=== PATIENT | female | born 1980 | race Hispanic/Latino ===

== ENCOUNTER 2018-06-27 09:00 | Emergency (ER) | payer BC ==
--- OUTSIDE RECORDS SUMMARY | 2018-06-27 09:03 | XMS REPORT | Clinical Summary ---
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 Encounters Date Type Specialty Care Team Description 07/02/2017 Orders Only General Surgery Jerry Reilly RN Morbid obesity due to excess calories (Primary Dx); Intestinal malabsorption, unspecified type; History of bariatric surgery after 06/26/2017 Family History Medical History Relation Name Comments Diabetes Brother Hypertension Brother Uterine cancer Mother Relation Name Status Comments Brother Mother Social History Tobacco Use Types Packs/Day Years Used Date Never Smoker Alcohol Use Drinks/Week oz/Week Comments No Sex Assigned at Date Recorded Not on file Job Start Date Occupation Industry Not on file Not on file Not on file Travel History Travel Start Travel End No recent travel history available. Last Filed Vital Signs Not on file Plan of Treatment Health Maintenance Due Date Last Done Comments CERVICAL CANCER SCREENING 2000 INFLUENZA VACCINE 01/16/2018 Results Not on fileafter 06/26/2017 Advance Directives Patient has advance care planning documents on file. For more information, please contact:[address] [address]
--- OUTSIDE RECORDS SUMMARY | 2018-06-27 09:03 | XMS REPORT ---
:1980 [facility] Address [address] [place] [address] Care Team Providers Name Role Phone Unavailable Unavailable Unavailable Payers Payer Name Policy Type Policy Number Effective Date Expiration Date Problems This patient has no known problems. Allergies, Adverse Reactions, Alerts Allergy Allergy Status Severity Reaction(s) Onset Inactive Treating Comments Name Type Date Date Clinician No Known DA Active U 2014-09 Allergies -18 00:00:0 0 Medications This patient has no known medications.
--- OUTSIDE RECORDS SUMMARY | 2018-06-27 09:03 | XMS REPORT ---
:1980 Author Organization [employer] Care Team Providers Name Role Phone Jenifer Mondragon Provider Role Unavailable Allergies No Known Allergies Problems Problem Type Condition Code Onset Dates Condition Status Problem Burping R14.2 Active Problem Total bilirubin, elevated R17 Active Problem Gastroesophageal reflux disease, K21.9 Active esophagitis presence not specified Problem Edema R60.9 Active Problem Constipation K59.00 Active Problem Shortness of breath R06.02 Active Problem Pain in unspecified foot M79.673 Active Problem Numbness R20.0 Active Problem Headache R51 Active Problem Low back pain M54.5 Active Problem Epigastric pain R10.13 Active Problem Chronic constipation K59.09 Active Problem Depression, unspecified depression F32.9 Active type Problem History of gastric bypass Z98.84 Active Problem History of hiatal hernia Z87.19 Active Medications No Known Medications Results No Known Results Summary Purpose [employer] Submission
--- OUTSIDE RECORDS SUMMARY | 2018-06-27 09:03 | XMS REPORT ---
:1980 Author Organization [employer] Care Team Providers Name Role Phone Jenifer Mondragon Provider Role Unavailable Allergies, Adverse Reactions, Alerts Substance Reaction Event Type N.K.D.A. Info Not Available Non Drug Allergy Problems Problem Type Condition Code Onset Dates [...] Active Problem Low back pain M54.5 Active Assessment Influenza vaccination administered Z23 Active during current admission Assessment School physical exam Z02.0 Active Problem Epigastric pain R10.13 Active Problem Chronic constipation K59.09 Active Problem Depression, unspecified depression F32.9 Active type Problem History of gastric bypass Z98.84 Active Problem History of hiatal hernia Z87.19 Active Medications Medication Code Code Instructions Start End Status Dosage System Date Date Amitiza [facility] 16969273868 24 MCG Orally Active 1 capsule Twice a day with food Meloxicam [facility] 98821447852 7.5 MG Orally Active 1 tablet Once a day Cyclobenzaprine [facility] 58164920416 5 MG Orally Active 1 tablet HCl Once daily as needed Lexapro [facility] 64200117925 10 MG Orally Active 1 tablet Once a day Lexapro ND 06161105649 10 MG Orally October 17, Active 1 tablet Once a day 2018 in am Protonix ND 20140110623 40 MG Orally October 17, Active 1 tablet Once a day 2017 Results No Known Results Immunizations Vaccine Administration Date Flucelvax - multidose vial Jun 13, 2018 Summary Purpose [employer]ClinicalWorks Submission
--- OUTSIDE RECORDS SUMMARY | 2018-06-27 09:03 | XMS REPORT ---
[...] Medications Results No Known Results Summary Purpose [employer]Works Submission
[2018-06-27 10:20] LABS: Absolute Lymphocytes (CBC) 1.4 K/uL (0.7-4.9); Absolute Monocytes 0.5 K/uL (0.1-1.3); Absolute Neutrophil 3.3 K/uL (1.8-8.0); Basophils % 0.8 % (0-1.3); Eosinophils % 1.2 % (0-4.4); Hematocrit 21.5 % (36.0-45.0); Lymphocytes % 26.7 % (15.3-44.8); MPV 7.7 fL (7.6-11.3); Monocytes % 9.1 % (3.3-12.3)
[2018-06-27 10:38] LABS: BUN Blood Urea Nitrogen 11 mg/dL (7-18); Bicarbonate 28 mmol/L (21-32); Ferritin 1.2 ng/mL (8-388); Glucose Level 82 mg/dL (74-106); Potassium 3.9 mmol/L (3.5-5.1); Sodium Level 142 mmol/L (136-145); Transferrin 350 mg/dL (200-360)
[2018-06-27 12:47] LABS: Anisocytosis 2+; Blood Morphology Comment NOTED (NOT SEEN); Hypochromasia 2+; Platelet Estimate ADEQ; Urine White Blood Cell Casts OK
[2018-06-27 12:48] LABS: Elliptocytes 1+
[2018-06-27] MEDS ORDERED: NA CHLORIDE 0.9% 250 ML ONE (13:12)
--- NOTE | 2018-06-27 15:23 | ER ---
Nurse's Notes [facility] Name: Argelia Hood Age: 38 yrs Sex: Female : 1980 Arrival Date: 06/27/2018 Time: 09:06 Bed 15 Private MD: Diagnosis: Iron deficiency anemia secondary to blood loss (chronic);Iron deficiency anemia Presentation: 06/27 09:32 Presenting complaint: Patient states: was sent by Dr. Mondragon for low Hgb, thinks iw maybe it was a 5.8, had heavy menstrual period 10 days ago, denies SOB, dizziness, Hbg was drawn for routine screening. 09:34 Transition of care: patient was not received from another setting of care. Onset of iw symptoms was June 27, 2018. Risk Assessment: Do you want to hurt yourself or someone else? Patient reports no desire to harm self or others. Initial Sepsis Screen: Does the patient meet any 2 criteria? No. Patient's initial sepsis screen is negative. Does the patient have a suspected source of infection? No. Patient's initial sepsis screen is negative. Care prior to arrival: None. 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 - Social history:: Smoking status: Patient/guardian denies using tobacco. - Ebola Screening: : Patient negative for fever greater than or equal to 101.5 degrees Fahrenheit, and additional compatible Ebola Virus Disease symptoms Patient denies exposure to infectious person Patient denies travel to an Ebola-affected area in the 21 days before illness onset No symptoms or risks identified at this time. Screenin:37 Abuse screen: Denies threats or abuse. Denies injuries from another. Nutritional iw screening: No deficits noted. Tuberculosis screening: No symptoms or risk factors identified. Fall Risk None identified. Assessment: 10:05 General: Appears in no apparent distress. comfortable, Behavior is calm, cooperative, aj appropriate for age. Pain: Denies pain. Neuro: Level of Consciousness is awake, alert, obeys commands, Oriented to person, place, time, situation, Appropriate for age. Respiratory: Airway is patent Respiratory effort is even, unlabored, Respiratory pattern is regular, symmetrical. Derm: Skin Skin is normal, pale. 15:29 Reassessment: Patient appears in no apparent distress at this time. No changes from aj previously documented assessment. Patient and/or family updated on plan of care and expected duration. Pain level reassessed. Patient is alert, oriented x 3, equal unlabored respirations, skin warm/dry/pink. Completed transfusion of 1 unit PRBC, approx 320 ml. Reports feeling better. Patient states feeling better. Patient states symptoms have improved. Vital Signs: 09:35 BP 101 / 61; Pulse 70; Resp 16; Temp 98.2; Pulse Ox 100% on R/A; Weight 68.95 kg; iw Height 5 ft. 2 in. (157.48 cm); Pain 0/10; 10:22 BP 95 / 54; Pulse 68; Resp 18; Pulse Ox 100% on R/A; aj 10:42 BP 94 / 62; Pulse 62; Resp 17; Pulse Ox 100% on R/A; mh5 11:44 BP 99 / 59; Pulse 77; Resp 16; Temp 98.6(O); Pulse Ox 100% on R/A; mh5 13:10 BP 97 / 60; Pulse 72; Resp 20; Temp 97.9; Pulse Ox 100% on R/A; aj 14:56 BP 99 / 55; Pulse 64; Resp 19; Pulse Ox 100% on R/A; aj 09:35 Body Mass Index 27.80 (68.95 kg, 157.48 cm) ED Course: 09:06 Patient arrived in ED. mr 09:21 Dmitry Tyler PA is PHCP. jr8 09:21 Parmjit Tang MD is Attending Physician. jr8 09:34 Triage completed. iw 09:35 Arm band placed on. iw 09:59 Elodia Bear, JILL is Primary Nurse. aj 10:05 Patient has correct armband on for positive identification. Bed in low position. Call aj light in reach. Side rails up X 1. Adult w/ patient. equipment monitor phototypesetting on. Pulse ox on. NIBP on. 10:12 Initial lab(s) drawn, by me, sent to lab. T\T\S collected, blood band applied to patient. 5 Inserted saline lock: 22 gauge in right antecubital area, using aseptic technique. Blood collected. 10:13 TS Sent. 5 10:13 TIBC Sent. mh5 10:13 Iron Level Sent. mh5 10:13 Basic Metabolic Panel Sent. 5 10:13 CBC with Diff Sent. 5 10:14 Warm blanket given. 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 aj 15:29 IV discontinued, intact, bleeding controlled, No redness/swelling at site. Pressure aj dressing applied. Administered Medications: No medications were administered Outcome: 15:23 Discharge ordered by MD. mariah 15: Discharged to home ambulatory, with family. aj 15: Condition: good 15:29 Discharge instructions given to patient, family, Instructed on discharge instructions, follow up and referral plans. medication usage, Demonstrated understanding of instructions, follow-up care, medications, Prescriptions given X 1. 15:32 Patient left the ED. bee Signatures: Elodia Bear, RN Alisson Tan Irene, RN Dmitry Lema, DIALLO LANDRUM jrTatiana Gayle [facility] Corrections: (The following items were deleted from the chart) 09:34 09:32 Presenting complaint: Patient states: was sent by Dr. Mondragon for low Hgb, iw thinks maybe it was a 5.8, had heavy menstrual period 10 days ago, denies SOB, dizziness iw
--- NOTE | 2018-06-27 15:24 | EDPHYS ---
Physician Documentation [facility] Name: Argelia Hood Age: 38 yrs Sex: Female : 1980 Arrival Date: 06/27/2018 Time: 09:06 Bed 15 Private MD: ED Physician Parmjit Tang HPI: 06/27 11:04 This 38 yrs old Female presents to ER via Ambulatory with complaints of jr8 Abnormal Lab Results. 11:04 Patient with history of heavy menstrual cycles. Baseline iron deficient anemia per her. jr8 Stated that list last cycle she felt dizzy and was having sweating episodes. 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 Had blood work completed at that time. Was called telling her that she was anemic and needed transfusion. Came to ED at that time. Patient denies anymore bleeding . Severity of symptoms: At their worst the symptoms were mild in the emergency department the symptoms have improved. The patient has not experienced similar symptoms in the past. The patient has not recently seen a physician. 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 - Social history:: Smoking status: Patient/guardian denies using tobacco. - Ebola Screening: : Patient negative for fever greater than or equal to 101.5 degrees Fahrenheit, and additional compatible Ebola Virus Disease symptoms Patient denies exposure to infectious person Patient denies travel to an Ebola-affected area in the 21 days before illness onset No symptoms or risks identified at this time. ROS: 11:04 Eyes: Negative for injury, pain, redness, and discharge, ENT: Negative for injury, jr8 pain, and discharge, Neck: Negative for injury, pain, and swelling, Cardiovascular: Negative for chest pain, palpitations, and edema, Respiratory: Negative for shortness of breath, cough, wheezing, and pleuritic chest pain, Abdomen/GI: Negative for abdominal pain, nausea, vomiting, diarrhea, and constipation, Back: Negative for injury and pain, MS/Extremity: Negative for injury and deformity, Neuro: Negative for headache, weakness, numbness, tingling, and seizure. 11:04 : Positive for vaginal bleeding, menstrual abnormality. 11:04 Skin: Positive for pallor. Exam: 11:04 Eyes: Pupils equal round and reactive to light, extra-ocular motions intact. Lids and jr8 lashes normal. Conjunctiva and sclera are non-icteric and not injected. Cornea within normal limits. Periorbital areas with no swelling, redness, or edema. ENT: Nares patent. No nasal discharge, no septal abnormalities noted. Tympanic membranes are normal and external auditory canals are clear. Oropharynx with no redness, swelling, or masses, exudates, or evidence of obstruction, uvula midline. Mucous membranes moist. Neck: Trachea midline, no thyromegaly or masses palpated, and no cervical lymphadenopathy. Supple, full range of motion without nuchal rigidity, or vertebral point tenderness. No Meningismus. Cardiovascular: Regular rate and rhythm with a normal S1 and S2. No gallops, murmurs, or rubs. Normal PMI, no JVD. No pulse deficits. Respiratory: Lungs have equal breath sounds bilaterally, clear to auscultation and percussion. No rales, rhonchi or wheezes noted. No increased work of breathing, no retractions or nasal flaring. Abdomen/GI: Soft, non-tender, with normal bowel sounds. No distension or tympany. No guarding or rebound. No evidence of tenderness throughout. Back: No spinal tenderness. No costovertebral tenderness. Full range of motion. MS/ Extremity: Pulses equal, no cyanosis. Neurovascular intact. Full, normal range of motion. Neuro: Awake and alert, GCS 15, oriented to person, place, time, and situation. Cranial nerves II-XII grossly intact. Motor strength 5/5 in all extremities. Sensory grossly intact. Cerebellar exam normal. Normal gait. 11:04 Skin: Appearance: Color: pale, Temperature: normal temperature, Moisture: normal moisture, petechiae, not noted, ecchymosis, not noted. 11:15 Abdomen/GI: Rectal exam: rectal tone normal, Stool: brown, guaiac negative, jr8 hemorrhoid(s), are not appreciated, mass, is not appreciated, tenderness, is not appreciated, the exam is chaperoned by the nurse. Vital Signs: 09:35 BP 101 / 61; Pulse 70; Resp 16; Temp 98.2; Pulse Ox 100% on R/A; Weight 68.95 kg; iw Height 5 ft. 2 in. (157.48 cm); Pain 0/10; 10:22 BP 95 / 54; Pulse 68; Resp 18; Pulse Ox 100% on R/A; aj 10:42 BP 94 / 62; Pulse 62; Resp 17; Pulse Ox 100% on R/A; mh5 11:44 BP 99 / 59; Pulse 77; Resp 16; Temp 98.6(O); Pulse Ox 100% on R/A; mh5 13:10 BP 97 / 60; Pulse 72; Resp 20; Temp 97.9; Pulse Ox 100% on R/A; aj 14:56 BP 99 / 55; Pulse 64; Resp 19; Pulse Ox 100% on R/A; aj 09:35 Body Mass Index 27.80 (68.95 kg, 157.48 cm) iw MDM: 09:21 Patient medically screened. rust 15:21 Data reviewed: vital signs, nurses notes, lab test result(s), and as a result, I will jr8 discharge patient. Data interpreted: Pulse oximetry: on room air is 100 %. Interpretation: normal. Counseling: I had a detailed discussion with the patient and/or guardian regarding: the historical points, exam findings, and any diagnostic results supporting the discharge/admit diagnosis, lab results, the need for outpatient follow up, a family practitioner, an OB/Gyne specialist, to return to the emergency department if symptoms worsen or persist or if there are any questions or concerns that arise at home. Response to treatment: the patient's symptoms have markedly improved after treatment. ED course: asymptomatic post transfusion. 06/27 09:36 Order name: CBC with Diff; Complete Time: 12:52 06/27 09:36 Order name: Basic Metabolic Panel; Complete Time: 10:48 jr8 06/27 09:36 Order name: Iron Level; Complete Time: 10:48 06/27 09:36 Order name: TIBC; Complete Time: 10:48 06/27 09:36 Order name: TS jr8 06/27 09:36 Order name: IV; Complete Time: 10:13 jr8 06/27 10:28 Order name: CBC Smear Scan; Complete Time: 12:52 EDKS 06/27 11:04 Order name: Jolanta em1 06/27 11:41 Order name: ABO/RH no charge; Complete Time: 12:07 [facility] 06/27 12:34 Order name: ABO rpt [facility] 06/27 12:34 Order name: Packed RBCs (Additional Unit) EDKS Administered Medications: No medications were administered Disposition: 15:41 Co-signature as Attending Physician, Parmjit Tang MD I agree with the assessment and [facility] plan of care. Disposition: 06/27/18 15:23 Discharged to Home. Impression: Iron deficiency anemia secondary to blood loss (chronic), Iron deficiency anemia. - Condition is Stable. - Discharge Instructions: Iron Deficiency Anemia, Adult, Blood Transfusion, Adult, Iron-Rich Diet. - Prescriptions for Ferrous Sulfate 325 mg (65 mg Iron) Oral Tablet - take 1 tablet by ORAL route every 8 hours; 90 tablet. - Medication Reconciliation Form, Thank You Letter, Antibiotic Education, Prescription Opioid Use form. - Follow up: Private Physician; When: 2 - 3 days; Reason: Recheck today's complaints, Continuance of care, Re-evaluation by your physician. - Problem is new. - Symptoms have improved. Signatures: Dispatcher [employer] EDKS Elodia Bear RN RN aj Anderson, Corey, MD MD cha Williams, Irene, RN RN iw Roszak, Josh, PA PA jr8 Corrections: (The following items were deleted from the chart) 09:38 09:37 FERRITIN+C.LAB.BRZ ordered. [facility] 11:15 11:04 Eyes: Pupils equal round and reactive to light, extra-ocular motions intact. Lids jr8 and lashes normal. Conjunctiva and sclera are non-icteric and not injected. Cornea within normal limits. Periorbital areas with no swelling, redness, or edema. ENT: Nares patent. No nasal discharge, no septal abnormalities noted. Tympanic membranes are normal and external auditory canals are clear. Oropharynx with no redness, swelling, or masses, exudates, or evidence of obstruction, uvula midline. Mucous membranes moist. Neck: Trachea midline, no thyromegaly or masses palpated, and no cervical lymphadenopathy. Supple, full range of motion without nuchal rigidity, or vertebral point tenderness. No Meningismus. Cardiovascular: Regular rate and rhythm with a normal S1 and S2. No gallops, murmurs, or rubs. Normal PMI, no JVD. No pulse deficits. Respiratory: Lungs have equal breath sounds bilaterally, clear to auscultation and percussion. No rales, rhonchi or wheezes noted. No increased work of breathing, no retractions or nasal flaring. Abdomen/GI: Soft, non-tender, with normal bowel sounds. No distension or tympany. No guarding or rebound. No evidence of tenderness throughout. Back: No spinal tenderness. No costovertebral tenderness. Full range of motion. MS/ Extremity: Pulses equal, no cyanosis. Neurovascular intact. Full, normal range of motion. Neuro: Awake and alert, GCS 15, oriented to person, place, time, and situation. Cranial nerves II-XII grossly intact. Motor strength 5/5 in all extremities. Sensory grossly intact. Cerebellar exam normal. Normal gait. jr8 15:32 15:23 06/27/2018 15:23 Discharged to Home. Impression: Iron deficiency anemia secondary aj to blood loss (chronic); Iron deficiency anemia. Condition is Stable. Forms are Medication Reconciliation Form, Thank You Letter, Antibiotic Education, Prescription Opioid Use. Follow up: Private Physician; When: 2 - 3 days; Reason: Recheck today's complaints, Continuance of care, Re-evaluation by your physician. Problem is new. Symptoms have improved. jr8
== END 2018-06-27 15:32 | disposition home or self-care (01) ==
LOC: ER 09:00
PROC: 30233N1 Transfusion of Nonautologous Red Blood Cells into Peripheral Vein, Percutaneous Approach (ICD-10-PCS; principal; 2018-06-27)
DX: D50.0 Iron deficiency anemia secondary to blood loss (chronic) (principal)
CPT/HCPCS: 36415; 80048; 82272; 82728; 83540; 84466; 85025; 86850; 86900; 86901; 99284; P9016

== ENCOUNTER 2018-11-21 07:43 | Emergency (ER) | payer BC ==
--- OUTSIDE RECORDS SUMMARY | 2018-11-21 07:46 | XMS REPORT | Clinical Summary ---
:07/02/1979 Author Organization [facility] Address [address] [place] [address] Care Team Providers Name Role Phone Pcp, No Primary Care Provider Unavailable Allergies No Known Allergies Medications No known medications Active Problems Not on file Social History Tobacco Use Types Packs/Day Years Used Date Never Assessed Sex Assigned at Date Recorded Not on file Job Start Date Occupation Industry Not on file Not on file Not on file Travel History Travel Start Travel End No recent travel history available. Last Filed Vital Signs Not on file Plan of Treatment Not on file Results Not on fileafter 11/20/2017
--- OUTSIDE RECORDS SUMMARY | 2018-11-21 07:46 | XMS REPORT ---
[...] Medications Results No Known Results Summary Purpose [employer] Submission
--- OUTSIDE RECORDS SUMMARY | 2018-11-21 07:46 | XMS REPORT ---
[...] Problem Low back pain M54.5 Active Assessment Follow-up exam Z09 Active Assessment Anemia, unspecified type D64.9 Active Problem Epigastric pain R10.13 Active Problem Chronic constipation K59.09 Active Problem Depression, unspecified depression F32.9 Active type Problem History of gastric bypass Z98.84 Active Problem History of hiatal hernia Z87.19 Active Medications Medication Code Code Instructions Start End Status Dosage System Date Date Meloxicam [facility] 26672882286 7.5 MG Orally Active 1 tablet Once a day Protonix ND 62998943494 40 MG Orally October 17, Active 1 tablet Once a day 2017 Lexapro ND 18249939142 10 MG Orally Active 1 tablet Once a day Lexapro ND 27027651531 10 MG Orally October 17, Active 1 tablet Once a day 2018 in am Cyclobenzaprine ND 06251316764 5 MG Orally Active 1 tablet HCl Once daily as needed Amitiza ND 39837026885 24 MCG Orally Active 1 capsule Twice a day with food Results No Known Results Summary Purpose eClinicalWorks Submission
--- OUTSIDE RECORDS SUMMARY | 2018-11-21 07:46 | XMS REPORT | Clinical Summary ---
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 For more information, please contact:[address] [address]
--- OUTSIDE RECORDS SUMMARY | 2018-11-21 07:46 | XMS REPORT ---
:1980 [facility] Care Team Providers Name Role Phone Jenifer [...] Problem Low back pain M54.5 Active Assessment School physical exam Z02.0 Active Problem Epigastric pain R10.13 Active Problem Chronic constipation K59.09 Active Problem Depression, unspecified depression F32.9 Active type Problem History of gastric bypass Z98.84 Active Problem History of hiatal hernia Z87.19 Active Medications No Known Medications Results Name Result Date Reference Range Unit Abnormality Flag COMPREHENSIVE METABOLIC PANEL(CMP) ----ALBUMIN/GLOBULI 1.9 [id number] 1.0-2.5 (calc) N N RATIO ----GLOBULIN 2.3 [id number] 1.9-3.7 g/dL N (calc) ----ALKALINE 60 [id number] 33-115 U/L N PHOSPHATASE ----BILIRUBIN, 1.1 [id number] 0.2-1.2 mg/dL N TOTAL ----CHLORIDE 105 [id number] 98-110 mmol/L N ----ALT 8 [id number] 6-29 U/L N ----POTASSIUM 4.1 [id number] 3.5-5.3 mmol/L N ----AST 15 [id number] 10-30 U/L N ----SODIUM 138 [id number] 135-146 mmol/L N ----BUN/CREATININE NOT APPLICABLE [id number] 6-22 (calc) RATIO ----eGFR 122 [id number] > OR=60 mL/min/1.7 N AFGHAN 3m2 ----CALCIUM 8.8 [id number] 8.6-10.2 mg/dL N ----CARBON DIOXIDE 27 [id number] 20-32 mmol/L N ----ALBUMIN 4.3 [id number] 3.6-5.1 g/dL N ----PROTEIN, TOTAL 6.6 [id number] 6.1-8.1 g/dL N ----GLUCOSE 132 [id number] 65-139 mg/dL N ----UREA NITROGEN 12 [id number] 7-25 mg/dL N (BUN) ----CREATININE 0.72 [id number] 0.50-1.10 mg/dL N ----eGFR NON-AFR. 105 [id number] > OR=60 mL/min/1.7 N AFGHAN 3m2 Summary Purpose eClinicalWorks Submission
--- OUTSIDE RECORDS SUMMARY | 2018-11-21 07:46 | XMS REPORT ---
:1980 [facility] Address [address] [place] [address] [address] [place] [address] Care Team Providers Name Role Phone Unavailable [...]
--- OUTSIDE RECORDS SUMMARY | 2018-11-21 07:46 | XMS REPORT ---
:1980 Author Organization eClinicalWorks Care Team Providers Name Role Phone Jenifer Mondragon Provider Role Unavailable Allergies No Known Allergies Problems Problem Type Condition Code Onset Dates Condition Status Problem Low back pain M54.5 Active Problem Constipation K59.00 Active Problem Headache R51 Active Problem Overweight (BMI 25.0-29.9) E66.3 Active Problem Depression with anxiety F41.8 Active Problem Dietary counseling and surveillance Z71.3 Active Problem Shortness of breath R06.02 Active Problem Edema R60.9 Active Problem Numbness R20.0 Active Problem Pain in unspecified foot M79.673 Active Problem History of gastric bypass Z98.84 Active Problem Total bilirubin, elevated R17 Active Problem History of hiatal hernia Z87.19 Active Problem Burping R14.2 Active Problem Chronic constipation K59.09 Active Problem Gastroesophageal reflux disease, K21.9 Active esophagitis presence not specified Problem Depression, unspecified depression F32.9 Active type Problem Epigastric pain R10.13 Active Medications No Known Medications Results No Known Results Summary Purpose eClinicalWorks Submission
--- OUTSIDE RECORDS SUMMARY | 2018-11-21 07:46 | XMS REPORT ---
[...] Medications Results No Known Results Summary Purpose [employer] Submission
--- OUTSIDE RECORDS SUMMARY | 2018-11-21 07:46 | XMS REPORT ---
[...] Problem Low back pain M54.5 Active Assessment Screening-pulmonary TB Z11.1 Active Problem Epigastric pain R10.13 Active Problem Chronic constipation K59.09 Active Problem Depression, unspecified depression F32.9 Active type Problem History of gastric bypass Z98.84 Active Problem History of hiatal hernia Z87.19 Active Medications Medication Code Code Instructions Start End Status Dosage System Date Date Meloxicam [facility] 70920960768 7.5 MG Orally Active 1 tablet Once a day Amitiza [facility] 95148627257 24 MCG Orally Active 1 capsule Twice a day with food Lexapro ND 55884845742 10 MG Orally Active 1 tablet Once a day Cyclobenzaprine ND 43017454952 5 MG Orally Active 1 tablet HCl Once daily as needed Lexapro ND 27281485351 10 MG Orally October 17, Active 1 tablet Once a day 2018 in am Protonix ND 05540850172 40 MG Orally October 17, Active 1 tablet Once a day 2018 Results No Known Results Immunizations Vaccine Administration Date TB PPD Jun 24, 2018 Summary Purpose eClinicalWorks Submission
--- OUTSIDE RECORDS SUMMARY | 2018-11-21 07:46 | XMS REPORT ---
[...] End Status Dosage System Date Date Amitiza [facility] 61280138758 24 MCG Orally Active 1 capsule Twice a day with food Meloxicam [facility] 48080766591 7.5 MG Orally Active 1 tablet Once a day Cyclobenzaprine [facility] 60085913357 5 MG Orally Active 1 tablet HCl Once daily as needed Lexapro [facility] 69206367546 10 MG Orally Active 1 tablet Once a day Lexapro ND 33847550508 10 MG Orally October 17, Active 1 tablet Once a day 2018 in am Protonix ND 45554485278 40 MG Orally October 17, Active 1 tablet Once a day 2017 Results No Known Results Immunizations Vaccine Administration Date Flucelvax - multidose vial Jun 13, 2018 Summary Purpose eClinicalWorks Submission
[2018-11-21 09:25] LABS: Protime INR 0.99
[2018-11-21] MEDS ORDERED: NA CHLORIDE 0.9% 1,000 ML ONE (09:25)
[2018-11-21 09:28] LABS: Absolute Lymphocytes (CBC) 0.8 K/uL (0.7-4.9); Absolute Monocytes 0.7 K/uL (0.1-1.3); Absolute Neutrophil 15.9 K/uL (1.8-8.0); Basophils % 0.2 % (0-1.3); Eosinophils % 0.1 % (0-4.4); Hematocrit 27.3 % (36.0-45.0); Lymphocytes % 4.7 % (15.3-44.8); Monocytes % 3.9 % (3.3-12.3); RBC Red Blood Cell Count 4.22 M/uL (3.86-4.86)
[2018-11-21 09:28] LABS: Urine Blood NEGATIVE (NEG); Urine Glucose NEGATIVE (NEG); Urine Protein 1+ (NEG); Urine pH 7.5 (5.0-7.0)
[2018-11-21 09:38] LABS: ALT/SGPT 28 U/L (12-78); AST/SGOT 36 U/L (15-37); Albumin 4.5 g/dL (3.4-5.0); Alkaline Phosphatase 97 U/L (45-117); BUN Blood Urea Nitrogen 11 mg/dL (7-18); Bicarbonate 26 mmol/L (21-32); Bilirubin Direct 0.2 mg/dL (0-0.2); Bilirubin Total 1.2 mg/dL (0.2-1.0); Glucose Level 97 mg/dL (74-106); Magnesium 2.3 mg/dL (1.8-2.4); NT PRO-BNP 89 pg/mL (<125); Potassium 3.7 mmol/L (3.5-5.1); Sodium Level 140 mmol/L (136-145); Troponin (Emerg Dept Use Only) < 0.02 ng/mL (0.0-0.045)
[2018-11-21 09:47] LABS: Anisocytosis 2+; Blood Morphology Comment NOTED (NOT SEEN); Elliptocytes 2+; Hypochromasia 2+; Platelet Estimate ADEQ; Poikilocytosis 1+; Urine White Blood Cell Casts OK
--- NOTE | 2018-11-21 10:22 | EDPHYS ---
Physician Documentation [facility] Name: Argelia Hood Age: 38 yrs Sex: Female : 1980 Arrival Date: 11/21/2018 Time: 07:49 Bed 19 Private MD: Jenifer Mondragon ED Physician Parmjit Tang HPI: 11/21 08:48 This 38 yrs old Female presents to ER via Ambulatory with complaints of natanael Dizziness. 08:48 The patient presents with dizziness, generalized weakness. Onset: The symptoms/episode natanael began/occurred just prior to arrival. Modifying factors: The symptoms are alleviated by lying down, the symptoms are aggravated by standing up, changing position. Associated signs and symptoms: The patient has no apparent associated signs or symptoms. Severity of symptoms: At their worst the symptoms were mild moderate in the emergency department the symptoms are unchanged. Patient's baseline: Neuro: alert and fully oriented. 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 - Social history:: Smoking status: Patient/guardian denies using tobacco. - Ebola Screening: : No symptoms or risks identified at this time. - Family history:: not pertinent. ROS: 08:48 Constitutional: Negative for fever, chills, and weight loss, Eyes: Negative for injury, natanael pain, redness, and discharge, ENT: Negative for injury, pain, and discharge, Neck: Negative for injury, pain, and swelling, Cardiovascular: Negative for chest pain, palpitations, and edema, Respiratory: Negative for shortness of breath, cough, wheezing, and pleuritic chest pain, Abdomen/GI: Negative for abdominal pain, nausea, vomiting, diarrhea, and constipation, Back: Negative for injury and pain, : Negative for injury, bleeding, discharge, and swelling, MS/Extremity: Negative for injury and deformity, Psych: Negative for depression, anxiety, suicide ideation, homicidal ideation, and hallucinations, Allergy/Immunology: Negative for hives, rash, and allergies, Endocrine: Negative for neck swelling, polydipsia, polyuria, polyphagia, and marked weight changes, Hematologic/Lymphatic: Negative for swollen nodes, abnormal bleeding, and unusual bruising. 08:48 Skin: Positive for pallor. 08:48 Neuro: Positive for near syncope. Exam: 08:48 Constitutional: This is a well developed, well nourished patient who is awake, alert, natanael and in no acute distress. Head/Face: Normocephalic, atraumatic. Eyes: Pupils equal round and reactive to light, extra-ocular motions intact. Lids and lashes normal. Conjunctiva and sclera are non-icteric and not injected. Cornea within normal limits. Periorbital areas with no swelling, redness, or edema. ENT: Nares patent. No nasal discharge, no septal abnormalities noted. Tympanic membranes are normal and external auditory canals are clear. Oropharynx with no redness, swelling, or masses, exudates, or evidence of obstruction, uvula midline. Mucous membranes moist. Neck: Trachea midline, no thyromegaly or masses palpated, and no cervical lymphadenopathy. Supple, full range of motion without nuchal rigidity, or vertebral point tenderness. No Meningismus. Chest/axilla: Normal chest wall appearance and motion. Nontender with no deformity. No lesions are appreciated. Cardiovascular: Regular rate and rhythm with a normal S1 and S2. No gallops, murmurs, or rubs. Normal PMI, no JVD. No pulse deficits. Respiratory: Lungs have equal breath sounds bilaterally, clear to auscultation and percussion. No rales, rhonchi or wheezes noted. No increased work of breathing, no retractions or nasal flaring. Abdomen/GI: Soft, non-tender, with normal bowel sounds. No distension or tympany. No guarding or rebound. No evidence of tenderness throughout. Back: No spinal tenderness. No costovertebral tenderness. Full range of motion. MS/ Extremity: Pulses equal, no cyanosis. Neurovascular intact. Full, normal range of motion. Neuro: Awake and alert, GCS 15, oriented to person, place, time, and situation. Cranial nerves II-XII grossly intact. Motor strength 5/5 in all extremities. Sensory grossly intact. Cerebellar exam normal. Normal gait. Psych: Awake, alert, with orientation to person, place and time. Behavior, mood, and affect are within normal limits. 08:48 Skin: Appearance: Color: pale, Temperature: normal temperature, Moisture: normal moisture, petechiae, not noted, ecchymosis, not noted, abscess, not appreciated, cellulitis, is not appreciated. Vital Signs: 07:55 BP 98 / 63 Sitting; Pulse 90; bp 07:55 BP 93 / 54 Standing; Pulse 100; Resp 16; Pulse Ox 100% ; bp 07:55 BP 104 / 57 Supine; Pulse 89; Resp 16; Temp 97.1; Pulse Ox 100% on R/A; Weight 73.48 bp kg; Height 5 ft. 2 in. (157.48 cm); Pain 0/10; 09:13 BP 90 / 71; Pulse 97; Resp 15; Temp 98.7(O); Pulse Ox 100% ; mh5 10:25 BP 94 / 57 Supine; Pulse 86; Resp 15; Temp 97.7(O); Pulse Ox 100% ; mh5 10:27 BP 96 / 64 Sitting; Pulse 94; Resp 16; Pulse Ox 100% on R/A; mh5 10:29 BP 94 / 54 Standing; Pulse 101; Resp 17; Pulse Ox 100% on R/A; mh5 07:55 Body Mass Index 29.63 (73.48 kg, 157.48 cm) bp MDM: 08:05 Patient medically screened. [facility] 08:54 Data reviewed: vital signs, nurses notes, lab test result(s), EKG, radiologic studies, [facility] plain films. 11/21 08:46 Order name: CBC with Diff; Complete Time: 10:14 [facility] 11/21 08:46 Order name: LFT's; Complete Time: 10:14 [facility] 11/21 08:46 Order name: Magnesium; Complete Time: 10:14 [facility] 11/21 08:46 Order name: NT PRO-BNP; Complete Time: 10:14 [facility] 11/21 08:46 Order name: Troponin (emerg Dept Use Only); Complete Time: 10:14 [facility] 11/21 08:46 Order name: Type And Screen; Complete Time: 10:14 [facility] 11/21 08:47 Order name: CMP; Complete Time: 10:14 11/21 08:47 Order name: Protime (+inr); Complete Time: 10:14 11/21 08:47 Order name: Ptt, Activated; Complete Time: 10:14 11/21 09:09 Order name: Urine Dipstick--Ancillary (enter results); Complete Time: 10:14 ag 11/21 08:46 Order name: XRAY Chest (1 view) [facility] 11/21 08:46 Order name: EKG; Complete Time: 08:48 [facility] 11/21 08:46 Order name: Cardiac monitoring; Complete Time: 08:48 [facility] 11/21 08:46 Order name: EKG - Nurse/Tech; Complete Time: 08:48 [facility] 11/21 08:46 Order name: IV Saline Lock; Complete Time: 09:13 [facility] 11/21 08:46 Order name: Labs collected and sent; Complete Time: 09:13 [facility] 11/21 08:46 Order name: O2 Per Protocol; Complete Time: 08:48 [facility] 11/21 08:46 Order name: O2 Sat Monitoring; Complete Time: 08:48 [facility] 11/21 08:46 Order name: Urine Test (obtain specimen); Complete Time: 09:08 [facility] 11/21 08:46 Order name: Urine Dipstick-Ancillary (obtain specimen); Complete Time: 09:08 [facility] 11/21 09:09 Order name: Urine --Ancillary (enter results); Complete Time: 10:14 ag 11/21 09:43 Order name: CBC Smear Scan; Complete Time: 10:14 EDMS 11/21 10:19 Order name: Orthostatics; Complete Time: 10:22 [facility] Administered Medications: 09:05 Drug: NS 0.9% 500 ml Route: IV; Rate: bolus; Site: right antecubital; bp 11:02 Follow up: IV Status: Completed infusion; IV Intake: 350ml bp 09:05 Drug: NS 0.9% 1000 ml Route: IV; Rate: 125 ml/hr; Site: right antecubital; bp 11:03 Follow up: IV Status: Completed infusion; IV Intake: 500ml bp Disposition: 11/21/18 10:20 Discharged to Home. Impression: Anemia, unspecified, Syncope and collapse - near. - Condition is Stable. - Discharge Instructions: Iron Deficiency Anemia, Adult, Anemia, Nonspecific, Iron-Rich Diet, Near-Syncope, Weakness, Near-Syncope, Gvrq-uq-Togn, Weakness, Drxr-vy-Votb, Iron Deficiency Anemia, Adult, Trea-ol-Fqnh, Vasovagal Syncope, Adult. - Prescriptions for Ferrous Sulfate 325 mg (65 mg Iron) Oral Tablet - take 1 tablet by ORAL route every 8 hours; 90 tablet. - Medication Reconciliation Form, Thank You Letter, Antibiotic Education, Prescription Opioid Use, School release form form. - Follow up: Jenifer Mondragon MD; When: 2 - 3 days; Reason: Recheck today's complaints, Continuance of care, Re-evaluation by your physician. Follow up: Lotus Cavazos MD; When: 2 - 3 days; Reason: Recheck today's complaints, Continuance of care, Re-evaluation by your physician. - Problem is new. - Symptoms have improved. Signatures: Dispatcher [employer] EDMS Parmjit Tang MD MD cha Baxter, Heather, RN RN Lefty Pacheco RN RN bp Corrections: (The following items were deleted from the chart) 08:49 08:47 BASIC METABOLIC PANEL+C.LAB.BRZ ordered. EDPR EDMS 08:49 08:47 IV Saline Lock ordered. bp bp 08:49 08:47 Labs collected and sent ordered. bp bp 09:32 08:48 TYPE AND SCREEN+BB.LAB.BRZ ordered. EDPR EDMS 09:42 09:33 CBC Smear Scan ordered. EDPR EDMS 09:44 08:48 CBC+H.LAB.BRZ ordered. [facility] EDMS 11:04 10:20 11/21/2018 10:20 Discharged to Home. Impression: Anemia, unspecified; Syncope and bp collapse - near. Condition is Stable. Forms are Medication Reconciliation Form, Thank You Letter, Antibiotic Education, Prescription Opioid Use. Follow up: Jenifer Mondragon; When: 2 - 3 days; Reason: Recheck today's complaints, Continuance of care, Re-evaluation by your physician. Follow up: Lotus Cavazos; When: 2 - 3 days; Reason: Recheck today's complaints, Continuance of care, Re-evaluation by your physician. Problem is new. Symptoms have improved. natanael
--- NOTE | 2018-11-21 10:22 | ER ---
Nurse's Notes [facility] Name: Argelia Hood Age: 38 yrs Sex: Female : 1980 Arrival Date: 11/21/2018 Time: 07:49 Bed 19 Private MD: Jenifer Mondragon Diagnosis: Anemia, unspecified;Syncope and collapse-near Presentation: 11/21 07:52 Presenting complaint: Sudden dizziness while standing this morning. Hx of anemia with hb blood transfusion last week. Transition of care: patient was not received from another setting of care. Onset of symptoms was November 21, 2018. Risk Assessment: Do you want to hurt yourself or someone else? Patient reports no desire to harm self or others. Care prior to arrival: None. 07:52 Method Of Arrival: Ambulatory hb 07:52 Acuity: EDWINA 3 hb 10:59 Initial Sepsis Screen: Does the patient meet any 2 criteria? No. Patient's initial bp sepsis screen is negative. Does the patient have a suspected source of infection? No. Patient's initial sepsis screen is negative. Triage Assessment: 07:57 General: Appears in no apparent distress. comfortable, Behavior is calm, cooperative, bp appropriate for age. Pain: Denies pain. EENT: PALE CONJUNCTIVA. Neuro: Level of Consciousness is awake, alert, obeys commands, Oriented to person, place, time, situation, Appropriate for age. Cardiovascular: No deficits noted. Respiratory: Airway is patent Respiratory effort is even, unlabored, Respiratory pattern is regular, symmetrical. GI: No signs and/or symptoms were reported involving the gastrointestinal system. : No signs and/or symptoms were reported regarding the genitourinary system. Derm: No deficits noted. Musculoskeletal: Circulation, motion, and sensation intact. Range of motion: intact in all extremities. 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 - Social history:: Smoking status: Patient/guardian denies using tobacco. - Ebola Screening: : No symptoms or risks identified at this time. - Family history:: not pertinent. Screenin:58 Abuse screen: Denies threats or abuse. Denies injuries from another. Nutritional bp screening: No deficits noted. Tuberculosis screening: No symptoms or risk factors identified. Fall Risk None identified. Assessment: 07:58 General: SEE TRIAGE NOTE. bp 09:05 Reassessment: ALL CURRENT ORDERS COMPLETED, RESULTS PENDING. bp 10:57 Reassessment: PT D/C HOME AMBULATORY WITH FAMILY, DX WITH IRON-DEFICIENCY ANEMIA. bp Vital Signs: 07:55 BP 98 / 63 Sitting; Pulse 90; bp 07:55 BP 93 / 54 Standing; Pulse 100; Resp 16; Pulse Ox 100% ; bp 07:55 BP 104 / 57 Supine; Pulse 89; Resp 16; Temp 97.1; Pulse Ox 100% on R/A; Weight 73.48 bp kg; Height 5 ft. 2 in. (157.48 cm); Pain 0/10; 09:13 BP 90 / 71; Pulse 97; Resp 15; Temp 98.7(O); Pulse Ox 100% ; mh5 10:25 BP 94 / 57 Supine; Pulse 86; Resp 15; Temp 97.7(O); Pulse Ox 100% ; mh5 10:27 BP 96 / 64 Sitting; Pulse 94; Resp 16; Pulse Ox 100% on R/A; mh5 10:29 BP 94 / 54 Standing; Pulse 101; Resp 17; Pulse Ox 100% on R/A; mh5 07:55 Body Mass Index 29.63 (73.48 kg, 157.48 cm) bp ED Course: 07:49 Patient arrived in ED. ag5 07:49 Jenifer Mondragon MD is Private Physician. ag5 07:49 Lefty Miramontes, RN is Primary Nurse. bp 07:54 Patient has correct armband on for positive identification. Bed in low position. Call 5 light in reach. Side rails up X 1. Warm blanket given. asphalt spreader operator on. Pulse ox on. NIBP on. 07:55 Triage completed. hb 07:55 Arm band placed on. hb 08:05 Parmjit Tang MD is Attending Physician. natanael 08:07 EKG done, by guitar repair technician. reviewed by Parmjit Tang MD. sm3 09:05 Inserted saline lock: 20 gauge in right antecubital area, using aseptic technique. bp Blood collected. 09:08 Urine collected: clean catch specimen, clear. mh5 09:13 X-ray completed. Portable x-ray completed in exam room. Patient tolerated procedure jb2 well. 09:15 XRAY Chest (1 view) In Process Unspecified. EDMS 10:19 Jenifer Mondragon MD is Referral Physician. [facility] 10:19 Lotus Cavazos MD is Referral Physician. [facility] 10:58 No provider procedures requiring assistance completed. IV discontinued, intact, bp bleeding controlled, No redness/swelling at site. Pressure dressing applied. Administered Medications: 09:05 Drug: NS 0.9% 500 ml Route: IV; Rate: bolus; Site: right antecubital; bp 11:02 Follow up: IV Status: Completed infusion; IV Intake: 350ml bp 09:05 Drug: NS 0.9% 1000 ml Route: IV; Rate: 125 ml/hr; Site: right antecubital; bp 11:03 Follow up: IV Status: Completed infusion; IV Intake: 500ml bp Intake: 11:02 IV: 350ml; Total: 350ml. bp 11:03 IV: 500ml; Total: 850ml. bp Outcome: 10:20 Discharge ordered by . natanael 10:58 Discharged to home ambulatory, with family. bp 10:58 Condition: stable 10:58 Discharge instructions given to patient, family, Instructed on discharge instructions, follow up and referral plans. medication usage, Demonstrated understanding of instructions, follow-up care, medications, Prescriptions given X 1. 11:04 Patient left the ED. bp Signatures: Dispatcher [employer] EDMS Parmjit Tang MD MD cha Buechter, Jesse jb2 Maite Hector RN RN Tatiana Dobbs 5 Lefty Miramontes RN RN bp Montes, Shakira 3 Sav De Souza 5 Corrections: (The following items were deleted from the chart) 07:57 07:55 BP 104 / 57; Pulse 89bpm; Resp 16bpm; Pulse Ox 100% RA; Temp 97.1F; 73.48 kg; bp Height 5 ft. 2 in.; BMI: 29.6; Pain 0/10; hb
--- NOTE | 2018-11-21 10:26 | RAD REPORT ---
EXAM DESCRIPTION: Kasie Single View11/21/2018 9:14 am CLINICAL HISTORY: Cough COMPARISON: none FINDINGS: The lungs appear clear of acute infiltrate. The heart is normal size IMPRESSION: No acute abnormalities displayed
--- NOTE | 2018-11-21 11:10 | EKG ---
Test Date: 2018-11-21 Test Time: 08:05:23 Metal Crafts Teacher: TAI MEASUREMENT RESULTS: Intervals: Rate: 85 IL: 150 QRSD: 78 QT: 362 QTc: 430 Powell: P: 65 IL: 150 QRS: 79 T: 63 INTERPRETIVE STATEMENTS: Normal sinus rhythm Low voltage QRS Borderline ECG No previous ECG available for comparison Electronically Signed On 11-21-18 11:09:36 CDT by Brandon Webb
== END 2018-11-21 11:04 | disposition home or self-care (01) ==
LOC: ER 07:43
DX: D64.9 Anemia, unspecified (principal); R55 Syncope and collapse
CPT/HCPCS: 36415; 71045; 80053; 80076; 81003; 81025; 83735; 83880; 84484; 85025; 85610; 85730; 86850; 86900; 86901; 93005; 96360; 96361; 99285; J7030

== ENCOUNTER 2023-09-24 19:34 | Emergency (ER) | payer OTHER ==
[2023-09-24] MEDS ORDERED: NA CHLORIDE 0.9% 1,000 ML ONE (19:40)
[2023-09-24] MEDS ORDERED: TRANEXAMIC ACID 1,000 MG/10 ML VIAL IV ONE (19:42)
[2023-09-24] MEDS ORDERED: NA CHLORIDE 0.9% 100 ML ONE (19:49)
[2023-09-24 20:39] LABS: Absolute Basophils 0.1 K/uL (0-0.5); Absolute Eosinophils 0.1 K/uL (0-0.5); Absolute Lymphocytes (CBC) 1.8 K/uL (0.7-4.9); Absolute Monocytes 0.5 K/uL (0.1-1.3); Absolute Neutrophil 4.8 K/uL (1.8-8.0); Basophils % 0.9 % (0-1.3); Eosinophils % 1.1 % (0-4.4); Hematocrit 22.8 % (36.0-45.0); Hemoglobin 6.8 g/dL (12.0-15.0); Lymphocytes % 24.9 % (15.3-44.8); MCH 20.1 pg (27.0-35.0); MCHC 29.7 g/dL (32.0-36.0); MCV 67.7 fL (80-100); MPV 7.8 fL (7.6-11.3); Monocytes % 6.6 % (3.3-12.3); Neutrophils % 66.5 % (41.7-73.7); Platelets 396 thou/uL (152-406); RBC Red Blood Cell Count 3.36 M/uL (3.86-4.86); Red Cell Distribution Width 15.8 % (12.1-15.2)
[2023-09-24 20:50] LABS: PT Prothrombin Time 10.8 SECONDS (9.5-12.5); PTT, Activated Partial Thromb 29.6 SECONDS (24.3-36.9); Protime INR 0.98
--- NOTE | 2023-09-24 21:15 | RAD REPORT ---
EXAM DESCRIPTION: US - Pelvis Complete - 09/24/2023 9:07 pm CLINICAL HISTORY: vaginal bleed Pelvic pain. COMPARISON: <Comparisons> FINDINGS: Generalized diffusely heterogenous appearance to the myometrium. The uterus measures 8.1 x 6.3 x 5.0 cm. The endometrial stripe measures mildly thickened to 18 mm. Both ovaries obscured by bowel gas. No adnexal masses. No significant pelvic ascites. IMPRESSION: Diffusely heterogenous myometrium can indicate underlying adenomyosis. Mildly thickened endometrial stripe up to 18 mm, likely physiologic. Given that a polyp can have a si milar appearance, suggest follow-up sonography in 6 weeks.
[2023-09-24] MEDS ORDERED: NA CHLORIDE 0.9% 250 ML ONE ×2 (21:18→21:19)
[2023-09-24 22:30] LABS: Specific Gravity 1.011 (1.005-1.030); Sqamous Epithelial <5 /HPF (None Seen); Urine Bacteria None Seen /HPF (<20); Urine Bilirubin NEGATIVE (Negative); Urine Blood 1+ (Negative); Urine Clarity Clear (Clear); Urine Color Light-Yellow (Yellow); Urine Culture Reflex Order NOT NEEDED; Urine Glucose NEGATIVE (Negative); Urine Ketones NEGATIVE (Negative); Urine Microscopic Reflex YN ORDER UMIC; Urine Mucus Slight /HPF (None Seen); Urine Nitrite NEGATIVE (Negative); Urine Protein NEGATIVE (Negative); Urine RBC <5 /HPF (None Seen); Urine Urobilinogen Normal (Normal); Urine WBC <5 /HPF (<5); Urine pH 6.5 (5.0-7.0)
[2023-09-24 22:32] LABS: Specific Gravity 1.011 (1.005-1.030)
--- NOTE | 2023-09-24 22:35 | EDPHYS ---
Physician Documentation [facility] Name: Argelia Nieves Age: 43 yrs Sex: Female : 1980 Arrival Date: 09/24/2023 Time: 19:34 Bed 4 Private MD: ED Physician Nguyễn Geller HPI: 09/23 19:45 This 43 yrs old Female presents to ER via Wheelchair with complaints of rn Vaginal Bleeding. 19:45 The patient presents with vaginal bleeding that is moderate. rn 19:46 Onset: The symptoms/episode began/occurred 3 day(s) ago. Modifying factors: The rn symptoms are alleviated by nothing, the symptoms are aggravated by nothing. Severity of symptoms: At their worst the symptoms were moderate, in the emergency department the symptoms are unchanged. The patient has experienced similar episodes in the past. Patient reports history of heavy vaginal bleeding. Has been intermittent over the last few years. Last time this happened she required a D\T\C. This was 2 years ago. Reports 3 days of vaginal bleeding. Does not take blood thinners. Was at [facility] emergency room across the street, they were taking too long and did not have the right medication, they recommended transfer but they did not want to wait so came here for faster treatment. Patient actually given 2 L bolus of there and states feels better but blood pressure has not come up. Denies shortness of breath and syncope.. [employer]: 22:38 LMP 09/21/2023, unknown km8 Historical: - Allergies: 19:36 No Known Allergies; mb9 - Home Meds: 19:36 None [Active]; mb9 - PMHx: 19:36 Anemia; GERD (Anemia); mb9 - PSHx: 19:36 None; mb9 - Immunization history:: Adult Immunizations up to date. - Infectious Disease History:: Denies. - Social history:: Smoking status: Patient denies any tobacco usage or history of. - Family history:: not pertinent. - Hospitalizations: : No recent hospitalization is reported. ROS: 19:46 Constitutional: Negative for fever, chills, and weight loss, Cardiovascular: Negative rn for chest pain, palpitations, and edema, Respiratory: Negative for shortness of breath, cough, wheezing, and pleuritic chest pain, Abdomen/GI: Negative for abdominal pain, nausea, vomiting, diarrhea, and constipation, : Positive for vaginal bleeding MS/Extremity: Negative for injury and deformity, Skin: Negative for injury, rash, and discoloration, Neuro: Positive for generalized weakness and malaise Exam: 19:46 Constitutional: This is a well developed, well nourished patient who is awake, alert, rn and in no acute distress. Cardiovascular: Regular rate and rhythm. No pulse deficits. Respiratory: No increased work of breathing, no retractions or nasal flaring. Abdomen/GI: Soft, non-tender Skin: Pale skin Neuro: Awake and alert, GCS 15 22:41 : Pelvic Exam: Speculum exam: Small amount of blood clot in the vaginal vault. sp4 There is is a blood clot in the cervical os. There is no active bleeding out of cervical os. 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 1 in. ; Pain 0/10; 19:39 BP 67 / 55; mb9 19:45 BP 87 / 58; Pulse 56; Resp 16; Pulse Ox 100% on R/A; km8 20:01 BP 87 / 58; rn 20:15 BP 87 / 52; Pulse 59; Resp 16; Pulse Ox 100% on R/A; km8 20:30 BP 97 / 57; Pulse 57; Resp 16; Pulse Ox 100% on R/A; km8 21:15 BP 77 / 46; Pulse 62; Resp 16; Pulse Ox 100% on R/A; km8 22:30 BP 93 / 62; Pulse 60; Resp 16; Pulse Ox 100% on R/A; km8 19:35 Body Mass Index 34.96 (83.91 kg, 154.94 cm) mb9 19:35 Pain Scale: Adult mb9 Shellie Coma Score: 19:41 Eye Response: spontaneous(4). Motor Response: obeys commands(6). Verbal Response: km8 oriented(5). Total: 15. MDM: 19:36 Patient medically screened. rn 22:39 Differential diagnosis: cervicitis, dysmenorrhea, menorrhea, Data reviewed: vital sp4 signs, nurses notes, old medical records, lab test result(s), radiologic studies, ultrasound. Consideration of Admission/Observation Escalation of care including admission/observation considered. ED course: Patient was given 2 units of blood. Pelvic exam revealed that there is a blood clot present in the cervical opening without active vaginal bleed. Patient states she would like to go home at this time and we feel that patient is stable for discharge home. She is not tachycardic. Patient feels much better after 2 units of packed red blood cells. 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 Will prescribe tranexamic acid 3 times a day. . 09/23 19:37 Order name: Type And Screen rn 09/23 19:37 Order name: CBC with Diff rn 09/23 19:37 Order name: Basic Metabolic Panel; Complete Time: 22:14 rn 09/23 19:37 Order name: Protime (+inr); Complete Time: 22:14 rn 09/23 19:37 Order name: Ptt, Activated; Complete Time: 22:14 rn 09/23 19:37 Order name: Test, Urine rn 09/23 19:37 Order name: Urinalysis w/ reflexes rn 09/23 20:40 Order name: Packed RBC Leukored EDMS 09/23 20:24 Order name: US Pelvis Complete; Complete Time: 22:14 sp4 09/23 19:37 Order name: IV Start; Complete Time: 19:39 rn Administered Medications: 19:42 Drug: NS 0.9% IV 1000 ml IV at 1000 ml once Route: IV; Rate: 1000 ml; Site: right wrist;cm10 21:00 Follow up: IV Status: Completed infusion; IV Intake: 1000ml km8 19:58 Drug: tranexamic acid 1000 mg IV at calculated rate once; administer at a rate not to km8 exceed 100 mg per min Route: IV; Rate: calculated rate; Site: right wrist; 22:39 Follow up: Response: No adverse reaction; IV Status: Completed infusion km8 Disposition Summary: 09/24/23 22:34 Discharge Ordered Problem: new sp4 Symptoms: have improved sp4 Condition: Stable sp4 Diagnosis - Primary dysmenorrhea sp4 - Menorrhagia and anemia sp4 - Adenomyosis sp4 Followup: sp4 - With: Lotus Cavazos MD - When: 7 - 10 days - Reason: Recheck today's complaints Discharge Instructions: - Discharge Summary Sheet sp4 - Menorrhagia, [id number] sp4 Forms: - Patient Portal Instructions sp4 Prescriptions: - tranexamic acid 650 mg Oral tablet - take 2 tablet ORAL route every 8 hours for 10 days; 60 tablet; Refills: 0, sp4 Product Selection Permitted Signatures: Dispatcher [employer] EDRI Kevin Messer MD MD rn Breneman, Alisson Crespo RN RN mb9 Nguyễn Geller MD MD sp4 Benita Siddiqui RN RN cm10 Karen Quinonez RN RN km8 Corrections: (The following items were deleted from the chart) 19:37 19:37 CBC+H.LAB.BRZ ordered. EDRI EDRI 19:37 19:37 BASIC METABOLIC PANEL+C.LAB.BRZ ordered. [facility] EDRI 19:37 19:37 PROTIME (+INR)+COAG.LAB.BRZ ordered. [facility] EDRI 19:37 19:37 PTT, ACTIVATED+COAG.LAB.BRZ ordered. [facility] EDRI 19:37 19:37 Test, Urine+UC.LAB.BRZ ordered. EDRI EDRI 19:37 19:37 Urinalysis+U.LAB.BRZ ordered. [facility] EDRI 19:37 19:37 TYPE AND SCREEN+BB.LAB.BRZ ordered. [facility] EDRI 19:47 19:46 Patient reports history of heavy vaginal bleeding. Has been intermittent over the rn last few years. Last time this happened she required a D\T\C. This was 2 years ago. Reports 3 days of vaginal bleeding. Does not take blood thinners. Was at [facility] emergency room across the street, they were taking too long and did not have the right medication, they recommended transfer but they did not want to wait so came here for faster treatment. Patient actually given 2 L bolus of there and states feels better but blood pressure has not come up.. rn 20:40 20:22 PACKED RBC LEUKORED+BB.LAB.BRZ ordered. [facility] EDRI 20:40 20:24 ABO/RH typing ordered. [facility] EDRI 20:40 20:24 Antibody Screen ordered. [facility] EDRI
--- NOTE | 2023-09-24 22:35 | ER ---
Nurse's Notes [facility] Name: Argelia Nieves Age: 43 yrs Sex: Female : 1980 Arrival Date: 09/24/2023 Time: 19:34 Bed 4 Private MD: Diagnosis: Primary dysmenorrhea;Menorrhagia and anemia ;Adenomyosis Presentation: 09/23 19:35 Chief complaint: Patient states: "I've been having a heavy menstrual cycle for the past mb9 3 days. I feel dizzy, weak, and SOB. I went to [place] and I was hypotensive and have a Hgb of 7.6". Coronavirus screen: Vaccine status: Patient reports receiving the 2nd dose of the covid vaccine. Ebola Screen: No symptoms or risks identified at this time. Initial Sepsis Screen: Does the patient meet any 2 criteria? No. Patient's initial sepsis screen is negative. Does the patient have a suspected source of infection? No. Patient's initial sepsis screen is negative. Risk Assessment: Do you want to hurt yourself or someone else? Patient reports no desire to harm self or others. Onset of symptoms was September 24, 2023. 19:35 Acuity: EDWINA 2 mb9 19:35 Method Of Arrival: Wheelchair mb9 Triage Assessment: 19:37 General: Appears uncomfortable, Behavior is calm, cooperative. Pain: Denies pain. EENT: mb9 No signs and/or symptoms were reported regarding the EENT system. Neuro: Cabral Agitation-Sedation Scale (RASS): 0 - Alert and Calm Level of Consciousness is awake, alert, obeys commands, Oriented to person, place, time, situation, Appropriate for age. Neuro: Reports dizziness. Cardiovascular: Patient's skin is warm and dry. Respiratory: Reports shortness of breath Airway is patent Respiratory effort is even, unlabored, Respiratory pattern is regular, symmetrical. GI: No signs and/or symptoms were reported involving the gastrointestinal system. : No signs and/or symptoms were reported regarding the genitourinary system. Derm: Skin is intact, Skin is dry, Skin is pale, Skin temperature is cool. Musculoskeletal: Range of motion: intact in all extremities. 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 - Infectious Disease History:: Denies. - Social history:: Smoking status: Patient denies any tobacco usage or history of. - Family history:: not pertinent. - Hospitalizations: : No recent hospitalization is reported. Screenin:41 [facility] ED Fall Risk Assessment (Adult) History of falling in the last 3 months, km8 including since admission No falls in past 3 months (0 pts) Confusion or Disorientation No (0 pts) Intoxicated or Sedated No (0 pts) Impaired Gait No (0 pts) Mobility Assist Device Used No (0 pt) Altered Elimination No (0 pt) Score/Fall Risk Level 0 - 2 = Low Risk Oriented to surroundings, Maintained a safe environment, Educated pt \\T\\ family on fall prevention, incl call for assistance when getting out of bed, Assessed \\T\\ reinforced patient's understanding of fall precautions. Abuse screen: Denies threats or abuse. Denies injuries from another. Nutritional screening: No deficits noted. Tuberculosis screening: No symptoms or risk factors identified. Assessment: 19:41 General: Appears in no apparent distress. comfortable, Behavior is calm, cooperative, km8 appropriate for age. Pain: Denies pain. Neuro: Level of Consciousness is awake, alert, obeys commands, Oriented to person, place, time, situation, Reports weakness lightheaded. Cardiovascular: Reports shortness of breath, Denies chest pain, Patient's skin is warm and dry. Rhythm is sinus bradycardia. Respiratory: Reports shortness of breath Airway is patent Respiratory effort is even, unlabored, Respiratory pattern is regular, symmetrical. GI: No signs and/or symptoms were reported involving the gastrointestinal system. : Denies cramping Parent/caregiver report the patient having vaginal bleeding that is heavy flow since 3 days ago. EENT: No signs and/or symptoms were reported regarding the EENT system. Derm: Skin is healthy with good turgor, Skin is dry, Skin is pale, Skin temperature is cool. Musculoskeletal: Range of motion: intact in all extremities. 20:40 Reassessment: Patient appears in no apparent distress at this time. No changes from km8 previously documented assessment. Patient and/or family updated on plan of care and expected duration. Pain level reassessed. Patient is alert, oriented x 3, equal unlabored respirations, skin warm/dry/pink. 22:34 Reassessment: emergent blood transfusion x2 units ordered; see separate paper charts [facility] for VS from [id number]. 22:36 Reassessment: Patient appears in no apparent distress at this time. Patient and/or km8 family updated on plan of care and expected duration. Pain level reassessed. Patient is alert, oriented x 3, equal unlabored respirations, skin warm/dry/pink. Patient states feeling better. Patient states symptoms have improved. Derm: Skin is healthy with good turgor, Skin is dry, Skin is pink, warm \\T\\ dry. normal, Skin temperature is cool. Vital Signs: 19:35 BP 87 / 55; Pulse 60; Resp 16; Temp 98.2; Pulse Ox 100% on R/A; Weight 83.91 kg; Height mb9 5 ft. 1 in. ; Pain 0/10; 19:39 BP 67 / 55; mb9 19:45 BP 87 / 58; Pulse 56; Resp 16; Pulse Ox 100% on R/A; km8 20:01 BP 87 / 58; rn 20:15 BP 87 / 52; Pulse 59; Resp 16; Pulse Ox 100% on R/A; km8 20:30 BP 97 / 57; Pulse 57; Resp 16; Pulse Ox 100% on R/A; km8 21:15 BP 77 / 46; Pulse 62; Resp 16; Pulse Ox 100% on R/A; km8 22:30 BP 93 / 62; Pulse 60; Resp 16; Pulse Ox 100% on R/A; km8 19:35 Body Mass Index 34.96 (83.91 kg, 154.94 cm) mb9 19:35 Pain Scale: Adult mb9 Mode Coma Score: 19:41 Eye Response: spontaneous(4). Motor Response: obeys commands(6). Verbal Response: km8 oriented(5). Total: 15. ED Course: 19:35 Patient arrived in ED. mb9 19:36 Kevin Messer MD is Attending Physician. rn 19:36 Triage completed. mb9 19:37 Arm band placed on. mb9 19:38 Inserted saline lock: 20 gauge in right wrist, using aseptic technique. mb9 19:39 Inserted saline lock: 20 gauge in left forearm, using aseptic technique. 9 19:41 Karen Quinonez, RN is Primary Nurse. km8 19:41 Patient has correct armband on for positive identification. Placed in gown. Bed in low km8 position. Call light in reach. Side rails up X2. Client placed on continuous cardiac and pulse oximetry monitoring. NIBP monitoring applied. desk monitor on. Pulse ox on. NIBP on. Warm blanket given. 20:22 Attending Physician role handed off by Kevin Messer MD sp4 20:22 Nguyễn Geller MD is Attending Physician. sp4 20:26 Initial lab(s) drawn, by nv, sent to lab. Inserted saline lock: 22 gauge in right km8 antecubital area, using aseptic technique. Blood collected. 20:26 20 gauge left forearm d/c'd, cath tip intact, dressing applied. km8 21:09 Pelvis Complete In Process Unspecified. EDMA 21:20 Provided Education on: Blood Transfusion. km8 22:33 Lotus Cavazos MD is Referral Physician. sp4 22:35 Assist provider with pelvic exam: Set up pelvic tray. Performed by Nguyễn Geller MD km8 Patient tolerated well. 22:49 IV discontinued, intact, bleeding controlled, No redness/swelling at site. Pressure km8 dressing applied, both IV sites. Administered Medications: 19:42 Drug: NS 0.9% IV 1000 ml IV at 1000 ml once Route: IV; Rate: 1000 ml; Site: right wrist;cm10 21:00 Follow up: IV Status: Completed infusion; IV Intake: 1000ml km8 19:58 Drug: tranexamic acid 1000 mg IV at calculated rate once; administer at a rate not to km8 exceed 100 mg per min Route: IV; Rate: calculated rate; Site: right wrist; 22:39 Follow up: Response: No adverse reaction; IV Status: Completed infusion km8 Medication: 19:41 VIS not applicable for this client. km8 Intake: 21:00 IV: 1000ml; Total: 1000ml. km8 Outcome: 22:34 Discharge ordered by . sp4 22:49 Discharged to home ambulatory, with significant other, km8 22:49 Condition: good 22:49 Discharge instructions given to patient, significant other, Instructed on discharge instructions, follow up and referral plans. medication usage, Demonstrated understanding of instructions, follow-up care, medications, Prescriptions given X 1, 22:50 Patient left the ED. km8 Signatures: Dispatcher [employer] EDMS Kevin Messer MD MD rn Breneman, Alisson Crespo RN RN mb9 Nguyễn Geller MD MD sp4 Benita Siddiqui RN RN cm10 Karen Quinonez RN RN km8 Corrections: (The following items were deleted from the chart) 22:40 22:36 BP 87 / 58; Pulse 56bpm; Resp 16bpm; Pulse Ox 100% RA; km8 km8
[2023-09-25 00:07] LABS: Blood Morphology Comment NOTED (NOT SEEN); Hypochromasia 1+; Microcytosis 2+; Platelet Estimate ADEQ; White Blood Cell Scan OK (OK)
[2023-09-25 05:03] VITALS: TEMP 98.2; O2SAT 100
[2023-09-25 05:38] VITALS: BP 93/62
== END 2023-09-24 22:50 | disposition home or self-care (01) ==
LOC: ER 19:34
PROC: 30233N1 Transfusion of Nonautologous Red Blood Cells into Peripheral Vein, Percutaneous Approach (ICD-10-PCS; principal; 2023-09-24)
DX: N94.4 Primary dysmenorrhea (principal); D64.9 Anemia, unspecified; N80.03 Adenomyosis of the uterus
CPT/HCPCS: 96365; 85025; 81001; 80048; 36415; 86900; 86850; 81025; 85610; 86901; 85730; 86920 ×2; 76856; 99285; 96366; 36430; P9016 ×2; J7050 ×2; J7030